=== PATIENT | male | born 1960 | race Caucasian/White ===

== ENCOUNTER 2020-02-23 11:15 | Emergency (ER) | payer SELFPAY ==
[2020-02-23] MEDS ORDERED: DIPH/PERTUSS(ACELL)/TETANUS VAC/PF 0.5 ML SYR (>=10YO) IM ONE (11:38)
--- NOTE | 2020-02-23 11:40 | ER Document Report ---
ED Medical Screen (RME) - General Chief Complaint: Laceration Stated Complaint: LACERATION/LEFT THUMB Time Seen by Provider: 02/23/20 11:38 Mode of Arrival: Ambulatory Information source: Patient Notes: 59-year-old male presented to ED for 5 cm laceration to the base of the left thumb. He states he was working on his sink drain when he injured his thumb. He does have range of motion to the thumb. He is alert oriented respirations regular and unlabored speaking in full sentences. He does smoke a pack a day drinks weekly uses a little marijuana. He states he has no past medical histor y. He states he does not know when his last tetanus was so I have ordered one in the triage area. I have greeted and performed a rapid initial assessment of this patient. A comprehensive ED assessment and evaluation of the patient, analysis of test results and completion of medical decision making process will be conducted by an additional ED providers. - Related Data Allergies/Adverse Reactions: No Known Allergies Allergy (Verified 02/23/20 11:33) Physical Exam - Vital signs Vitals: Temp Pulse Resp BP Pulse Ox 98.3 F 86 19 151/85 H 96 02/23/20 11:21 02/23/20 11:21 02/23/20 11:21 02/23/20 11:21 02/23/20 11:21 Course - Vital Signs Vital signs: Temp Pulse Resp BP Pulse Ox 98.3 F 86 19 151/85 H 96 02/23/20 11:21 02/23/20 11:21 02/23/20 11:21 02/23/20 11:21 02/23/20 11:21
--- NOTE | 2020-02-23 12:34 | RADIOLOGY REPORT (SQ) ---
EXAM DESCRIPTION: HAND LEFT 3 VIEWS IMAGES COMPLETED DATE/TIME: 02/23/2020 12:20 pm REASON FOR STUDY: Laceration base left thumb COMPARISON: None. EXAM PARAMETERS: NUMBER OF VIEWS: Three views. TECHNIQUE: AP, lateral and oblique radiographic images acquired of the left hand. LIMITATIONS: None. FINDINGS: MINERALIZATION: Normal. 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 There is no acute fracture. JOINTS: Osteoarthrosis of the triscaphe, 1st CMC, 1st MTP, and several IP joints. SOFT TISSUES: Punctate radiodensities that project under the tuft of the thumb could represent foreig n bodies. OTHER: No other finding. IMPRESSION: No acute osseous abnormality of the left hand. The punctate radiodensities that project under the tuft of the thumb could represent foreign bodies. TECHNICAL DOCUMENTATION: JOB ID: [id number] 2010 [employer]- All Rights Reserved Reading location - IP/workstation name: [email or web address]
[2020-02-23] MEDS ORDERED: LIDOCAINE 1% INJ-PF (10 MG/ML) 30 ML SDV INJ ONE (13:49)
--- NOTE | 2020-02-23 13:50 | ER Document Report ---
ED Wound - General Chief Complaint: Laceration Stated Complaint: LACERATION/LEFT THUMB Time Seen by Provider: 02/23/20 11:38 Primary Care Provider: ANTHONY [facility] [Provider Group] - Follow up in 1 week [facility] [Provider Group] - Follow up in 1 week Mode of Arrival: Ambulatory Notes: Patient is a 59-year-old male who presents emergency department with a chief complaint of laceration to his left proximal dorsal thumb. Patient states that he was working with a drain pipe and trying to pull the nail out and ended up slicing his hand/thumb on the drain pipe. He received his tetanus vaccine in triage. States that he has little bit of numbness, but states that he is able to move his thumb with no difficulty. Patient is right-handed. Denies any blood thinner use. Denies any past medical history. Patient is an everyday smoker. - Related Data Allergies/Adverse Reactions: No Known Allergies Allergy (Verified 02/23/20 11:33) Past Medical History - General Information source: Patient - Social History Smoking Status: Current Every Day Smoker Chew tobacco use (# tins/day): No Frequency of alcohol use: Social Drug Abuse: Marijuana Family History: Reviewed & Not Pertinent Patient has homicidal ideation: No Review of Systems - Review of Systems Notes: REVIEW OF SYSTEMS: CONSTITUTIONAL : Denies recent illness. Denies recent unintentional weight loss. Denies fever, chills, or sweats. EENT: Denies eye, ear, throat, or mouth pain, discharge, or symptoms. Denies nasal or sinus congestion. CARDIOVASCULAR: Denies chest pain. RESPIRATORY: Denies shortness of breath, cough, congestion, difficulty breathing, or wheezing. GASTROINTESTINAL: Denies nausea, vomiting, and diarrhea. Denies abdominal pain. Denies constipation. GENITOURINARY: Denies difficulty urinating, burning, blood in urine, urgency or frequency. MUSCULOSKELETAL: Denies neck and back pain. Denies joint pain or swelling. SKIN: See HPI. HEMATOLOGIC : Denies easy bruising or bleeding. LYMPHATIC: Denies swollen, painful, enlarged glands. NEUROLOGICAL: Denies no numbness or tingling denies weakness. Denies headache. Denies altered mental status. Denies alteration in speech. PSYCHIATRIC: Denies stress, anxiety, alteration in sleep patterns, or depression. All other systems reviewed and negative. Physical Exam - Vital signs Vitals: Temp Pulse Resp BP Pulse Ox 98.3 F 86 19 151/85 H 96 02/23/20 11:21 02/23/20 11:21 02/23/20 11:21 02/23/20 11:21 02/23/20 11:21 - Notes Notes: PHYSICAL EXAMINATION: GENERAL: Appears well, healthy, well-nourished, no acute distress. HEAD: Normocephalic, atraumatic. EYES: PERRL, conjunctiva normal, all extraocular movements intact, sclera nonicteric ENT: Moist mucous membranes. NECK: Supple, no noticeable swelling, redness, rash. Normal range of motion. LUNGS: Equal breath sounds bilaterally and clear to auscultation. No wheezes rales or rhonchi. CARDIOVASCULAR: S1-S2, regular rate, regular rhythm. Radial pulses 2+, normal. ABDOMEN: Normoactive bowel sounds. Soft, nontender, no guarding, no rebound tenderness, and no masses palpated. EXTREMITIES: Normal strength and range of motion, no pitting or edema. No cyanosis. NEUROLOGICAL: Moves all extremities upon command. Strength 5/5 in all extremities. PSYCH: Normal mood, normal affect. SKIN: Warm, dry. Laceration noted to dorsal proximal thumb. Course - Re-evaluation Re-evalutation: 02/23/20 15:19 Differential diagnosis includes but is not limited to: Laceration, foreign body, arterial injury, nerve injury, fracture or tendon injury. Patient was able to flex and extend their digits against resistance distal to the laceration with no apparent tendon injury, CMS intact distal to the injury with no evidence of nerve damage at this time, bleeding was well-controlled in the emergency department. X-ray was obtained to rule out foreign body and fracture, this was negative. Wound was repaired. See procedure note. Follow-up precautions were given. Verbal discharge instructions were given to the patient. Patient will be started on prophylactic Keflex. They verbalized understanding. They are stable for discharge. Tetanus vaccine was given in triage. - Vital Signs Vital signs: Temp Pulse Resp BP Pulse Ox 98.3 F 61 16 134/84 H 96 02/23/20 11:34 02/23/20 15:35 02/23/20 15:35 02/23/20 15:35 02/23/20 15:35 Procedures - Laceration/Wound Repair Left Proximal Thumb Wound length (cm): 4 Wound's Depth, Shape: Superficial, Flap Laceration pre-procedure: Sterile PPE donned, Shur-Clens applied Anesthetic type: 1% Lidocaine Volume Anesthetic (mLs): 8 Wound explored: Clean, No foreign body removed Irrigated w/ Saline (mLs): 200 Wound Repaired With: Sutures Suture Size/Type: 5:0, Nylon Number of Sutures: 3 Layer Closure?: No Post-procedure wound care: Sterile dressing applied Post-procedure NV exam normal: Yes Complications: No Hands back picture: 1 - Semicircular laceration noted. About 4 cm in length. Discharge - Discharge Clinical Impression: Laceration Condition: Stable Disposition: HOME, SELF-CARE Instructions: Prophylactic Antibiotic ([facility]), Tetanus Immunization Given ([facility]) Additional Instructions: Please return to your primary doctor, the ED, or an urgent care in 7 days for suture removal. Return immediately if you develop spreading redness around the wound, pus from the wound, worsening pain, or a fever of >100.4. Keep the area clean and dry. Wash gently with soap and water twice daily and cover with antibi otic ointment. Take the antibiotic to prevent infection. Prescriptions: Cephalexin Monohydrate [Keflex 500 mg Capsule] 500 mg PO Q6H 5 Days capsule Forms: Return to Work Referrals: [facility] [Provider Group] - Follow up in 1 week [facility] [Provider Group] - Follow up in 1 week
[2020-02-23 15:39] VITALS: BP 134/84
== END 2020-02-23 15:35 | disposition home or self-care (01) ==
LOC: ER 11:15
PROC: 0HQGXZZ Repair Left Hand Skin, External Approach (ICD-10-PCS; principal; 2020-02-23)
DX: S61.012A Laceration without foreign body of left thumb without damage to nail, initial encounter (principal); W45.0XXA Nail entering through skin, initial encounter; F17.200 Nicotine dependence, unspecified, uncomplicated
CPT/HCPCS: 90471; 90715; 99283